=== PATIENT | male | born 1995 | race Caucasian/White ===

== ENCOUNTER → 2017-03-19 | Day surgery (SDC) | payer OTHER ==
[~2017-03-19] MED LIST: IBUPROFEN 600600 M1 PO; PERCOCET 5-3251 EACH PO
--- NOTE | 2017-04-16 16:51 | OP ---
[facility] [address] [place] [address] OPERATIVE REPORT Name: VALERIA SPRAGUE Room: [facility]#: [id number] Admission: 03/19/17 Attend Phys: France Quintero Discharge: Date of : 89 Report #: [id number] THIS REPORT FOR: //name// CC: ABDIRASHID physician/PCP Jesse Bhatia DICTATED BY: Eliecer Brown DO DATE OF SERVICE: 03/19/2017 DIAGNOSES: 1. Right knee anterior cruciate ligament graft rupture. 2. Lateral femoral condyle osteochondral defect. PROCEDURE: 1. Right knee revision ACL reconstruction (bdmr-zffnfy-vrsw allograft). 2. Anterior lateral ligament reconstruction (semitendinosis allograft). 3. Lateral femoral condyle chondroplasty. FINDINGS: 1. ACL graft rupture. 2. Full thickness osteochondral defect lateral femoral condyle 12 mm x 16 mm. SURGEON: Jesse Bhatia DO [employer] BATCH MIXER: Eliecer Brown DO ANESTHESIA: General. ESTIMATED BLOOD LOSS: 50 mL. COMPLICATIONS: None. SPECIMENS: None. CONDITION OF PATIENT: Stable to PACU. ORTHOPEDIC IMPLANTS: 1. Arthrex BTB TightRope. 2. Arthrex 9 x 23 mm BioComposite interference screw. 3. Arthrex 4.75 x 19.1 mm SwiveLock x 2. 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 He had 2 previous ACL reconstructions. This most recent one had done well for him up until he was playing basketball when upon laying down slightly flexion, he had a valgus [facility] [address] [place] [address] OPERATIVE REPORT Name: VALERIA SPRAGUE Room: [facility]#: [id number] Admission: 03/19/17 Attend Phys: France Quintero Discharge: Date of : 89 Report #: [id number] movement and suffered rupture of his ACL graft. He had an MRI which demonstrated a complete ACL graft rupture as well as a large osteochondral defect to the lateral femoral condyle measured greater than 1 cm x 1 cm. There was also questionable meniscus tear present in the MRI, but cannot be differentiated from artifact from previous meniscectomy. The MRI was reviewed with the patient and on exam, he was found to have some increased rotational laxity as well. It was recommended that he undergo an ACL reconstruction and possible anterior lateral ligament reconstruction if deem necessary once an exam under anesthesia was performed. All the risks, benefits, complications, indications were reviewed with the patient in the clinic and documented in the clinic note and he wished to proceed. PROCEDURE DESCRIPTION: The patient was brought to the operative suite and placed supine on a well-padded table. The right lower extremity had a tourniquet applied to the proximal thigh which was ultimately up to 300 mmHg for a total of 120 minutes. The leg was positioned in a well-pad arthroscopic leg maciel. The limb was then sterilely prepped and draped in the standard fashion. A timeout was then taken to ensure the correct patient, procedure, and operative site, everybody in the room were in agreement and we confirmed that he had received Ancef IV 2 grams prior to the incision. At that time, we began to proceed. An 11 blade scalpel was used to make the anterior lateral portal incision through the skin and subcutaneous tissue, a blunt trocar was introduced followed by an arthroscopic camera. At that time, we established the anteromedial portal under direct visualization with an 18-guage needle. We did this with an 11 blade scalpel and entered this with blunt trocar to establish outflow. At that point in time, a diagnostic arthroscopy was performed. First the patellofemoral compartment was visualized. There was no obvious chondral pathology noted here. There was some hypertrophic synovium just inferior pole of the patella. The trochlear was without pathology. Upon entering the medial compartment, there was no obvious meniscal tear noted. The ACL remnant was visualized from previous ACL reconstruction. There was absolutely no ACL. The fibers were intact, PCL was intact and probed and found to be stable as well as the meniscus was probed and found to be stable. Upon entering the lateral compartment, the meniscus was probed and stable; however, there was a large chondral defect measuring approximately 12 mm x 16 mm that was full thickness with subchondral bone exposed. This was probed back to stable borders, later chondroplasty will be performed. Once this part of the case was finished, an arthroscopic shaver was then used to perform a chondroplasty of lateral femoral condyle. We also cleared out our femoral tibial ACL graft stumps from previous reconstruction. Once this was done, we then inserted a femoral drill guide and position it at the posterior aspect of the inner aspect of the lateral femoral condyle and approximately at the 10 to 11 o'clock position. We then made a skin incision to the lateral aspect of the thigh through the skin and IT band, we inserted the drill guide, we then now used the drill pen to establish trajectory of our tunnel, we then malleted this into place. We overdrilled with the ArthGreenDust flip cutter. Once this was entered the knee, we deployed the flip [address] [address] OPERATIVE REPORT Name: VALERIA SPRAGUE Room: [facility]#: [id number] Admission: 03/19/17 Attend Phys: France Quintero Discharge: Date of : 89 Report #: [id number] cutter and flip cut to approximately 25 mm. Once this was done, we used a suture passer and passed a loop FiberWire suture through our femoral tunnel and at the anterolateral portal. At this point in time, we then switched the portals with our camera. We went on to prepare a tibial tunnel. We used a tibial drill guide and made a skin incision over the anteromedial aspect of the tibial ____ incision between the tibial crest and the posteromedial border of the tibia. Once the drill guide was appropriately positioned, we drilled from outside and once the drill had entered the joint, we then overdrilled to 10 mm diameter tibial tunnel. Once this was done, we agreed to place with our positions, we used arthroscopic shaver to remove all bony debris and debrided the apertures of our tunnels. Following that we reached up with a KingFisher and a grasper suture and put our loop FiberWire suture through for plans with future insertion of our graft. At this point in time, we went to the back table where we prepared a kkbt-dfedaz-jxpy allograft that was pre-cut to 10 mm. This graft measured 47 mm in length between the osseous portions. We cut the femoral bone block to approximately 20 mm and rongeured into appropriate shape and passed a 10 mm block. We drilled a single drill hole and passed our Arthrex BTB TightRope device. We then drilled 3 holes in the tibial bone block that was contoured to 10 mm of diameter and passed 3 FiberWires. Once this was completed, we then passed our graft up to a tibial tunnel. We secured this over the lateral aspect of the femur with our BTB TightRope device. Once this was done, we then addressed the anterior lateral ligament portion of the case. We made a small skin incision over the lateral femoral condyle as well as correction between Gerdy's tubercle in the fibular head. We dissected down bluntly with the hemostat. Two drill pins were then inserted at the femoral and tibial origin insertions of the anterior lateral ligament. Once this was done, we used a FiberWire suture ____ and took the knee through full range of motion checking for isometry. We were quite please with the position of our tunnels. We then overdrilled and we whipstitch with the FiberWire, a semitendinosis allograft tendon that was debulked to a thickness of 4.5 mm. We whipstitch the femoral end tuck it into a 4.75 mm Arthrex SwiveLock. We then tunneled this subcutaneously to our incision we have made over the area just behind Gerdy's tubercle in front of the fibular head. We then whipstitch this with FiberWire and then tuck this into the tibia with another 4.75 mm Arthrex SwiveLock. Once this was done, we took the knee through range of motion and felt that the anterior lateral ligament graft we created had excellent stability throughout motion and had excellent isometry. We then brought the knee to 30 degrees of flexion, resting the heel on a Velásquez table. A posterior drawer maneuver was then done where the tibial portion of ACL graft was tensioned. A nitinol wire was placed and over the top of that we used a 7 mm tap which got a good bite. We then pulled a 9 x 23 mm Arthrex BioComposite interference screw. We then secured this and had excellent fixation of our tibial component, we cut all free end of suture. The knee was taken through range of motion and found to be stable. We visualized our graft arthroscopically with a camera, had excellent positioned of our graft, it was quite stable. We then thoroughly lavaged the knee, close the portal incisions with 3-0 nylon simple interrupted fashion. We [place] [id number] OPERATIVE REPORT Name: VALERIA SPRAGUE GENE Room: [facility]#: [id number] Admission: 03/19/17 Attend Phys: France Quintero Discharge: Date of : 89 Report #: [id number] closed our tibial incision with a #1 Vicryl followed by 3-0 nylon simple interrupted fashion. Xeroform gauze, 4 x 4s, soft roll, Greg bandage were applied, polar care, followed by a 3D hinged knee brace locked in extension. The patient was awoken from anesthesia and brought to the PACU in stable condition. <ELECTRONICALLY SIGNED> By: Jesse Bhatia DO 04/16/17 1651 [id number] Bhatia DO /nt
== END | disposition home or self-care (01) ==
LOC: M.SUR 10:16
DX: T84.410A Breakdown (mechanical) of muscle and tendon graft, initial encounter (principal); M21.861 Other specified acquired deformities of right lower leg; M67.261 Synovial hypertrophy, not elsewhere classified, right lower leg; Z88.1 Allergy status to other antibiotic agents; Z88.2 Allergy status to sulfonamides; Z88.8 Allergy status to other drugs, medicaments and biological substances; Y83.8 Other surgical procedures as the cause of abnormal reaction of the patient, or of later complication, without mention of misadventure at the time of the procedure